=== PATIENT | male | born 1960 | race Caucasian/White ===

== ENCOUNTER 2023-02-10 11:00 | Outpatient (OUT) | payer MEDICARE, SELFPAY | END 2023-02-10 11:01 | disposition home or self-care (01) | LOC: WC 02-16 12:07 | PROVIDERS: PCP Surgery; Visit Provider Surgery | DX: L97.828 Non-pressure chronic ulcer of other part of left lower leg with other specified severity (principal) | CPT/HCPCS: 11042; G0463 ==

== ENCOUNTER 2023-02-23 13:20 | Outpatient (OUT) | payer MEDICARE, SELFPAY ==
--- NOTE | 2023-02-23 14:24 | CA_ITS ---
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1960 Requested By: [id number] Order Number: [id number] Reading MD: SHANNA VINCENT Interpretive Statements Biphasic doppler waveform PVR waveform with normal upstroke, amplitude and dicrotic notch Right: - no significant pressure gradiet between cuffs - abnormal SONA Left: - no significant pressure gradient between cuffs - abnormal SONA Impression - elevated indices (left calf, B/L DP, B/L PT) consistent with calcified, noncompressible arterial monsivais, which may underestimate the degree of arterial disease present - normal TBI, which are not influenced by arterial calcification, indicate normal arterial evaluation of the lower extremities without hemodynamic impairment of the B/L lower extremities at rest. (right TBI 1.25, left TBI 1.04) - clinical correlation advised Electronically Signed On 02-23-2023 21:39:27 EDT by SHANNA VINCENT
== END 2023-02-23 13:21 | disposition home or self-care (01) ==
LOC: CARD 13:21
PROVIDERS: PCP Surgery; Visit Provider Physician Assistant
DX: S81.802A Unspecified open wound, left lower leg, initial encounter (principal); R09.89 Other specified symptoms and signs involving the circulatory and respiratory systems; I73.9 Peripheral vascular disease, unspecified
CPT/HCPCS: 93923

== ENCOUNTER 2023-03-07 14:22 | Outpatient (OUT) | payer MEDICARE, SELFPAY | END 2023-03-07 14:23 | disposition home or self-care (01) | LOC: WC 14:22 | PROVIDERS: PCP Surgery; Visit Provider Physician Assistant | DX: L97.828 Non-pressure chronic ulcer of other part of left lower leg with other specified severity (principal) | CPT/HCPCS: 11043 ==

== ENCOUNTER 2023-03-21 14:51 | Outpatient (OUT) | payer MEDICARE, SELFPAY | END 2023-03-21 14:52 | disposition home or self-care (01) | LOC: WC 14:51 | PROVIDERS: PCP Surgery; Visit Provider Physician Assistant | DX: L97.828 Non-pressure chronic ulcer of other part of left lower leg with other specified severity (principal) | CPT/HCPCS: G0463 ==

== ENCOUNTER 2023-04-04 13:32 | Outpatient (OUT) | payer MEDICARE, SELFPAY | END 2023-04-04 13:33 | disposition home or self-care (01) | LOC: PST 13:32 | PROVIDERS: PCP Surgery; Visit Provider Surgery | DX: Z01.818 Encounter for other preprocedural examination (principal); Z12.11 Encounter for screening for malignant neoplasm of colon; Z80.1 Family history of malignant neoplasm of trachea, bronchus and lung ==

== ENCOUNTER 2023-04-11 13:50 | Outpatient (OUT) | payer MEDICARE, SELFPAY | END 2023-04-11 13:51 | disposition home or self-care (01) | LOC: WC 13:50 | PROVIDERS: PCP Physician Assistant; Visit Provider Physician Assistant | DX: L97.828 Non-pressure chronic ulcer of other part of left lower leg with other specified severity (principal) | CPT/HCPCS: G0463 ==

== ENCOUNTER 2023-04-13 06:53 | Day surgery (SDC) | payer MEDICARE, SELFPAY ==
--- NOTE | 2023-04-13 | OP_ITS ---
OPERATION DATE: ??04/13/2023 PREOPERATIVE DIAGNOSIS:? Strong family history of stomach cancer and colorectal screening. POSTOPERATIVE DIAGNOSIS:? Small hiatal hernia and sigmoid diverticulosis. PROCEDURE:?? EGD and colonoscopy to cecum. SURGEON:? Ike Cadena M.D. ANESTHESIA:? Monitored anesthesia care. ESTIMATED BLOOD LOSS:? Zero. INDICATIONS AND CONSENT:? Patient is a 63-year-old male who presents for colorectal screening.? He also has a strong family history of stomach cancer and requests an EGD.? Indications, risks, benefits, alternatives of proceeding with EGD and colonoscopy were explained extensively to the patient, including the risks of bleeding, aspiration, esophageal/gastric/duodenal or colonic perforation or anesthetic complications.? All of his questions were answered.? Informed consent was obtained. PROCEDURE:? Patient brought to the operating room, placed in the left lateral decubitus position.? Monitored anesthesia care was provided.? Bite block was placed in the patient?s mouth.? Scope was inserted into the oropharynx.? Under direct visualization, it was advanced into the esophagus, past the cricopharyngeus, down to the stomach.? The stomach was insufflated with air.? The pylorus was traversed down to the descending portion of the duodenum.? There was no evidence of duodenitis or ulceration.? There was no scarring within the pyloric channel.?? Scope was pulled back into the stomach and retroflexed.? There was noted to be a small, sliding type hiatal hernia.? No gastric mucosal abnormalities or polyps.? The GE junction was noted at approximately 39 cm.? There was no distal esophagitis or Lott?s changes. Remainder of the esophagus was unremarkable.? The scope was then withdrawn.? Patient was then positioned for colonoscopy.? Rectal exam was performed, which showed no masses or blood.? The scope was then inserted into the anal canal.? Under direct visualization, it was advanced.? It was advanced to the cecum where cecal markings were clearly identified.? There was noted to be a good prep.? Upon withdrawal of the scope, mucosal surfaces were carefully examined.? There were no mass lesions or polyps.? No inflammatory changes or ulcerations.? There was moderate descending and sigmoid diverticulosis without inflammatory changes or scarring.? The scope was retroflexed in the anal canal.? There was no significant hemorrhoidal disease.? The scope was then withdrawn.? The patient tolerated procedure well, was sent to recovery room in good condition. f/u screening colonoscopy should be in 10 years. CC:? Dr. Indira CAUSEY
[2023-04-13 07:10] VITALS: BP 153/84; PULSE 87; RESP 16; TEMP 36.2; O2SAT 97; BMI 26.4
[2023-04-13] MEDS: LACTATED RINGER'S SOLUTION 1,000 ML 50 ML IV (07:16)
[2023-04-13 08:30] VITALS: BP 117/65; PULSE 83; RESP 16; O2SAT 100
[2023-04-13 08:45] VITALS: BP 122/78; PULSE 66; RESP 16; O2SAT 98
== END 2023-04-13 09:00 | disposition home or self-care (01) ==
PROVIDERS: PCP Family Medicine; Visit Provider Surgery
PROC: (CPT 43235; principal; 2023-04-13 08:10)
DX: Z12.11 Encounter for screening for malignant neoplasm of colon (principal); Z80.0 Family history of malignant neoplasm of digestive organs; Z86.718 Personal history of other venous thrombosis and embolism; Z86.711 Personal history of pulmonary embolism; Z79.01 Long term (current) use of anticoagulants; K44.9 Diaphragmatic hernia without obstruction or gangrene; K57.30 Diverticulosis of large intestine without perforation or abscess without bleeding
CPT/HCPCS: 43235; G0105; J2704

== ENCOUNTER 2023-05-02 15:22 | Outpatient (OUT) | payer MEDICARE, SELFPAY | END 2023-05-02 15:23 | disposition home or self-care (01) | LOC: WC 15:22 | PROVIDERS: PCP Family Medicine; Visit Provider Physician Assistant | DX: L97.828 Non-pressure chronic ulcer of other part of left lower leg with other specified severity (principal) | CPT/HCPCS: G0463 ==